=== PATIENT | female | born 1985 | race Caucasian/White ===

== ENCOUNTER 2017-01-26 07:43 | Day surgery (SDC) | payer OTHER ==
[~2017-01-26 07:43] MED LIST: Acetic Acid 0.25%* 250 ML BTL ONE; Buffered Lidocaine 0.9% SYRIN* 5 ML/SYR SYRINGE INTRADERM ONE; Buffered Lidocaine 0.9% SYRIN* 5 ML/SYR SYRINGE ONE; Famotidine IV* 10 MG/ML 2 ML (20 mg) IV ONE; Famotidine IV* 10 MG/ML 2 ML (20 mg) ONE; Ferric Subsulfate* 8 ML BTL ONE; Iodine Strong (LUGOL'S)* 14 ML BTL ONE
[2017-01-26 07:48] LABS: Manual Entry Verification HAN0055; UR Preg Internal Control QC Line Present
[2017-01-26] MEDS ORDERED: Midazolam* 1 MG/ML 5 ML VIAL (5 MG) ONE (08:16)
[2017-01-26] MEDS ORDERED: fentaNYL* 50 MCG/ML 2 ML VIAL (100 MCG VIAL) ONE (08:16)
[2017-01-26] MEDS ORDERED: fentaNYL* 50 MCG/ML 2 ML VIAL (100 MCG VIAL) IV PRN (08:39)
[2017-01-26] MEDS ORDERED: DiMENhydriNATE IV* 50 MG/ML VIAL IV PUSH PRN (08:39)
[2017-01-26] MEDS ORDERED: oxyCODONE/Acetamin 5/325 MG* TAB PO PRN (08:39)
[2017-01-26] MEDS ORDERED: Lidocaine 1% INJ* 10 MG/ML 30 ML SDV ONE (09:43)
[2017-01-26] MEDS ORDERED: Ondansetron INJ* 2 MG/ML VIAL ONE (09:59)
[2017-01-26] MEDS ORDERED: Propofol* 10 MG/ML 20 ML BTL IV PUSH ONE (09:59)
[2017-01-26] MEDS ORDERED: Dexamethasone IV* 4 MG/ML 1 ML (4 MG) ONE (09:59)
[2017-01-26] MEDS ORDERED: Lidocaine 2% PF * 5 ML VIAL ONE (09:59)
[2017-01-26 11:12] VITALS: BP 101/55
--- NOTE | 2017-02-02 19:16 | OP ---
DATE OF OPERATION: 01/26/17 - [facility] DATE OF : 85 SURGEON: Rommel Wheeler MD ANESTHESIA: Local anesthetic with cervical block using 8 cc of 1% lidocaine. PRE-OP DIAGNOSIS: Moderate dysplasia with an inadequate colposcopy. POST-OP DIAGNOSIS: Moderate dysplasia with an inadequate colposcopy, pending pathology. OPERATIVE PROCEDURE: Colposcopy and a loop electrocautery excision procedure of the cervix. ESTIMATED BLOOD LOSS: None. SPECIMEN SENT TO PATHOLOGY: Cervical LEEP biopsy. IV FLUIDS: She received 800 cc of IV crystalloid fluid. URINE OUTPUT: Clear, 20 cc. FINDINGS: Exam under anesthesia revealed grossly normal cervix. The colposcopy was noted to be adequate. The transformation zone was poorly visualized and there was a 6 to 7 o'clock mild acetowhite lesion noted in its entirety at the ectocervical canal. DESCRIPTION OF PROCEDURE: The patient was taken to the operating room where she was identified. She was placed on the operating room table where she was sedated. She was then placed in the dorsal lithotomy position, prepped and draped in the normal sterile fashion. Attention was then brought on to the patient's perineum, where the bladder was catheterized and cleared of urine. A coated speculum was then inserted in the patient's vagina as well as the coated entrapment. The speculum was then attached to suction. A colposcopy was then performed using acetic acid and findings were noted as above. After the colposcopy was performed and deemed to be adequate, a loop electrode was used in a 50% pure cut setting. The LEEP biopsy was then performed. The specimens from the LEEP biopsy were then sent to Pathology. The bed where the LEEP biopsy had then obtained was cauterized using a ball electrode until hemostasis of the cervix was noted. At this point, all the instruments were then removed from the patient's vagina. Sponge, lap, and needle counts were correct x2. She was then transferred to the recovery room area in stable condition. [id number]/[facility] #: [id number] MTDD
== END 2017-01-26 11:29 | disposition home or self-care (01) ==
LOC: OR 07:43
PROVIDERS: ATTEND Obstetrics & Gynecology
DX: N87.1 Moderate cervical dysplasia (principal); F17.210 Nicotine dependence, cigarettes, uncomplicated
CPT/HCPCS: 81025; 88307; A9270-GY; J1100; J2001; J2250; J2405; J2704; J3010

== ENCOUNTER 2018-01-10 07:12 | Day surgery (SDC) | payer OTHER ==
[~2018-01-10 07:12] MED LIST changes: -Acetic Acid 0.25%* 250 ML BTL ONE; -Buffered Lidocaine 0.9% SYRIN* 5 ML/SYR SYRINGE ONE; -Famotidine IV* 10 MG/ML 2 ML (20 mg) IV ONE; -Famotidine IV* 10 MG/ML 2 ML (20 mg) ONE; -Ferric Subsulfate* 8 ML BTL ONE; -Iodine Strong (LUGOL'S)* 14 ML BTL ONE; +Ondansetron TAB* 4 MG PO ONE; +Propofol* 10 MG/ML 20 ML BTL IV PUSH ONE; +Rocuronium* 10 MG/ML VIAL ONE; +Succinylcholine* 20 MG/ML 10 ML VIAL ONE; +ceFOXitin 2 GM IVPREMIX* 2 GM/50 ML BAG IVPB ONE
[2018-01-10] MEDS ORDERED: Bupivacaine 0.5% SDV PF* 30ML VIAL ONE (07:20)
[2018-01-10] MEDS ORDERED: ceFOXitin 2 GM IVPREMIX* 2 GM/50 ML BAG ONE (07:32)
[2018-01-10] MEDS ORDERED: Ondansetron ODT TAB* 4 MG ONE (07:32)
[2018-01-10 08:28] LABS: ABS Basophils 0 10^3/ul (0-0.2); ABS Eosinophils 0.1 10^3/ul (0-0.6); ABS Lymphocytes 2.2 10^3/ul (1.0-4.8); ABS Monocytes 0.4 10^3/ul (0-0.8); ABS Neutrophils 2.1 10^3/ul (1.5-7.7); ABS Nucleated RBC 0 10^3/ul; Hematocrit 39 % (35-47); Hemoglobin 13.6 g/dl (12.0-16.0); Lymphocyte % 45.8 % (25-47); Mean Corpuscular HGB Conc 35 g/dl (31-36); Mean Corpuscular Hemoglobin 35 pg (27-31); Mean Corpuscular Volume 100 fL (80-97); Nucleated Red Blood Cells % 0.1; Platelet Count 169 10^3/ul (150-450); Red Blood Count 3.91 10^6/ul (4.00-5.40); Red Cell Distribution Width 13 % (10.5-15); White Blood Count 4.9 10^3/ul (3.5-10.8)
[2018-01-10] MEDS ORDERED: fentaNYL* 50 MCG/ML 2 ML VIAL (100 MCG VIAL) ONE ×2 (09:23→10:58)
[2018-01-10] MEDS ORDERED: Naloxone* 0.4 MG/ML 1 ML VIAL IV PRN (09:55)
[2018-01-10] MEDS ORDERED: Midazolam* 1 MG/ML 2 ML VIAL (2 MG) ONE (10:12)
[2018-01-10] MEDS ORDERED: Metoclopramide IV* 5 MG/ML 2 ML VIAL ONE (10:19)
[2018-01-10] MEDS ORDERED: Glycopyrrolate IV* 0.2 MG/ML 1 ML VIAL ONE (10:19)
[2018-01-10] MEDS ORDERED: Ketorolac INJ* 30 MG/ML 1 ML VIAL ONE (10:19)
[2018-01-10] MEDS ORDERED: Neostigmine Methylsulfate* 1 MG/ML 10 ML VIAL (1 mg/ml) ONE (10:19)
[2018-01-10] MEDS ORDERED: Acetaminophen TAB* 325 MG PO PRN (10:54)
[2018-01-10] MEDS ORDERED: Ondansetron INJ* 2 MG/ML VIAL ONE (10:55)
[2018-01-10] MEDS ORDERED: Ondansetron ODT TAB* 4 MG PO ONE (10:56)
[2018-01-10] MEDS ORDERED: Ondansetron INJ* 2 MG/ML VIAL IV PRN (10:57)
[2018-01-10] MEDS ORDERED: DiMENhydriNATE IV* 50 MG/ML VIAL ONE (10:58)
[2018-01-10] MEDS: fentaNYL* 50 MCG/ML 2 ML VIAL (100 MCG VIAL) IV PRN ×2 (11:02→11:34)
[2018-01-10 12:05] VITALS: BP 115/72
--- NOTE | 2018-01-11 02:06 | OP ---
OPERATIVE REPORT: DATE OF OPERATION: 01/10/18 DATE OF : 85 SURGEON: Rommel Wheeler MD ASSISTANT CENTER MANAGER: Marleen Ramos, certified nurse practitioner. ANESTHESIA: General anesthetic with endotracheal intubation. PRE-OP DIAGNOSIS: The patient desires surgical sterilization. POST-OP DIAGNOSIS: The patient desires surgical sterilization. OPERATIVE PROCEDURE: Laparoscopic tubal ligation with Filshie clips. ESTIMATED BLOOD LOSS: None. SPECIMEN: None. FLUIDS: She received 700 mL of IV crystalloid fluid. URINE OUTPUT: Clear. FINDINGS: On laparoscopy was normal uterus, tubes, and ovaries bilaterally, and a normal bowel and b ladder. There were no complications. DESCRIPTION OF PROCEDURE: The patient was taken to the operating room where she was identified. She was placed on the operating table where a general anesthetic with endotracheal intubation was obtain ed without difficulty. She was then placed in the dorsal lithotomy position, prepped and draped in n ormal sterile fashion. Attention was then brought onto the patient's perineum where the bladder was c atheterized with the Mar catheter and drained of clear urine. A sponge stick was then inserted int o the vagina. Attention was then brought on to the patient's abdomen where a 1 cm infraumbilical ski n incision was made with a knife and carried through to the underlying layer of fascia. The fascia w as then grasped with Aisha clamps, brought up to the incision and incised in the middle with a knife . Entry into peritoneum, into the abdomen was confirmed using Nancy clamps. The Aisha clamps were then replaced by 0 Polysorb sutures on the fascia. Through this incision, a 5 mm blunt trocar was i ntroduced. Balloon in the trocar was insufflated with air, attached to gas and the abdomen was insuf flated with CO2 gas. A second trocar was introduced under direct visualization 4 cm above symphysis p ubis. At this point, Filshie clip applicator was introduced through the suprapubic trocar and Filshi e clips were applied to the fallopian tubes bilaterally with good blanching at the site and complete surrounding of the fallopian tube lumen. At this point, all the instruments were removed from the pa tient's abdomen. The air from the abdomen was removed. The fascial incision at the umbilicus was heike sed with 0 Polysorb suture in a running fashion. The incisions were closed using 4-0 Monocryl subcut icular stitch. The Mar catheter was removed. The sponge stick was removed from the patient's vagi na. Sponge, lap and needle counts were correct x2. She was then transferred to recovery room area i n stable condition. [id number]/[facility] #: [id number]
== END 2018-01-10 12:17 | disposition home or self-care (01) ==
LOC: OR 07:12
PROVIDERS: ATTEND Obstetrics & Gynecology
DX: Z30.2 Encounter for sterilization (principal); Z72.0 Tobacco use
CPT/HCPCS: 36415; 84702; 85025; 86850; 86900; 86901; A9270-GY; J0330; J0694; J1240; J1885; J2250; J2405; J2704; J2710; J2765; J3010

== ENCOUNTER 2018-11-07 11:13 | Emergency (ER) | payer OTHER ==
--- OUTSIDE RECORDS SUMMARY | 2018-11-07 11:19 | XMS REPORT | Continuity of Care Document ---
:1985 External Reference #:[id number] Author Name Nickie Jones Care Team Providers Name Role Phone Airam Leos MD Primary Care Physician Unavailable Payers Date Identification Numbers Payment Provider Subscriber Effective: 2015 Policy Number: [id number] Raffaele Roblero Group Name: [id number] [address] PayID: [id number] [place] [address] Expires: 2015 Policy Number: [id number] [employer] Aleisha Roblero PayID: [id number] [address] [address] [place] [address] Advance Directives Type Date Description Status Comment Other Directive 05/02/2018 Health Care Proxy Current and Verified Problems Date Description Provider Status Onset: 11/18/2011 FH: Cardiovascular disease Nurse Visit [facility] Active Onset: 11/18/2011 Family history of endocrine Nurse Visit [facility] Active disorders Onset: 11/18/2011 Hemangioma Hailey Hayden M.D. Active Onset: 11/18/2011 Human immunodeficiency virus Nurse Visit [facility] Active counseling Onset: 12/01/2011 Dehydration Nicolasa Guardado, Active N.P. Onset: 12/01/2011 Nausea and vomiting Nicolasa Guardado, Active N.P. Onset: 01/19/2012 Breast signs and symptoms Nicolasa Guardado Active N.P. Onset: 01/19/2012 Verruca vulgaris Nicolasa Guardado, Active N.P. Family History Date Family Member(s) Observation Comments Father Hypertension Social History Type Date Description Comments Sex Unknown ETOH Use Never used alcohol Tobacco Use Start: Unknown End: Patient is a former smoker Unknown Recreational Drug Use Current Drug User marijuana Smoking Status Reviewed: 10/12/18 Patient is a former smoker Allergies, Adverse Reactions, Alerts Date Description Reaction Status Severity Comments 10/29/2011 Advil Cold And Sinus Contact dermatitis, Hives Active Medications Medication Date Status Form Strength Qnty SIG Indications Ordering Provider Selvin 10/13/ Active Tablets 4mg 30tabs one Zenaida 2018 tablet VENTURA Springer every 6 to 8 hours as needed Ranitidine HCL 10/10/ Active Tablets 150mg 60tabs take one R11.2 Teresa 2019 tablet by Varn, mouth N.P. twice a day No Active 05/16/ Hx Unknown Medications 2017 - 2018 No Active 05/02/ Hx Unknown Medications 2017 - 2017 Proctosol HC 05/02/ Hx Cream 2.5% 28.35u apply K64.8 Teresa 2018 - nits twice Varn, 05/16/ daily N.P. 2018 Amoxicillin/Cl 08/16/ Hx Tablets 875-125mg 20tabs take one J01.90 Wilmer avulanate 2016 - tablet VENTURA Gimenez Potassium 08/26/ q12 hours 2017 for 10 days Fluticasone 08/16/ Hx Suspension 50mcg/Act 16unit 2 sprays J01.90 Wilmer Propionate 2017 - s each VENTURA Gimenez 08/30/ nostril 2016 qd. x 2 weeks Augmentin 10/25/ Hx Tablets 875-125mg 20tabs 1 tablet J01.90 Wilmer 2016 - by mouth VENTURA Gimenez 08/16/ q12 hours 2017 for 10 days Fluticasone /25/ Hx Suspension 50mcg/Act 16unit 2 sprays J01.90 Wilmer Propionate 2016 - s each VENTURA Gimenez 05/09/ nostril 2015 qd. Bupropion HCL 12/09/ Hx Tablets ER 150mg 60tabs one Z72.0 Wilmer ER (Smoking 2015 - 12HR tablet VENTURA Gimenez Det) 05/04/ once 2016 daily x 3 days and then one tablet twice daily Azithromycin 12/09/ Hx Tablets 250mg 6tabs 2 tabs by L08.89 Wilmer 2015 - mouth VENTURA Gimenez 05/04/ every day 2016 x1 day, 1 tab by mouth every day x 4 days Proair HFA 04/19/ Hx Aerosol 108(90Base 1inhal 2 puffs 466.0 Barbara 2013 - ) mcg/Act er inhaled Carlos Enrique, 07/07/ q4-6h prn N.P. 2014 Augmentin 04/19/ Hx Tablets 875-125mg 20tabs 1 tab po 466.0 Barbara 2013 - bid x 10 Carlos Enrique, 07/07/ days N.P. 2014 Tessalon 04/19/ Hx Capsules 100mg 30caps 1 tab po 466.0 Barbara Perles 2012 - po tid Carlos Enrique, 07/07/ prn N.P. 2014 Amoxicillin/Cl 05/18/ Hx Tablets 875-125mg 20tabs 1 tab po 466.0 Hailey avulanate 2011 - 2x per Catracho, Potassium 01/08/ day M.D. 2012 Lamisil AT 05/18/ Hx Cream 1% 45gm apply to 110.4 Hailey Athletes Foot 2011 - foot bid Catracho 07/07/ until M.D. 2014 resolved Ortho Evra / Hx Patches 150-20mcg/ 9units apply Unknown 0000 - Weekly 24HR patch 05/18/ 2011 for 3 weeks, then remove for 1 week for cycle. Depo Shot / Hx Unknown 0000 - 2017 Immunizations CPT Code Status Date Vaccine Lot # [id number] Given 10/29/2011 Tdap - Tetanus/Diptheria/Acellular Pertussis [id number] Vital Signs Date Vital Result Comment 10/12/2018 10:07am Height 64.5 inches 5'4.50" Weight 119.25 lb Heart Rate 72 /min BP Systolic 97 mmHg BP Diastolic 66 mmHg Respiratory Rate 16 /min Body Temperature 96.9 F O2 % BldC Oximetry 100 % BMI (Body Mass Index) 20.2 kg/m2 10/10/2018 11:40am Height 64.5 inches 5'4.50" Weight 120.00 lb Heart Rate 67 /min BP Systolic 103 mmHg BP Diastolic 68 mmHg Body Temperature 96.8 F O2 % BldC Oximetry 97 % BMI (Body Mass Index) 20.3 kg/m2 05/02/2018 3:35pm Height 64.5 inches 5'4.50" Weight 131.00 lb Heart Rate 98 /min BP Systolic Sitting 89 mmHg BP Diastolic Sitting 59 mmHg Body Temperature 98.0 F O2 % BldC Oximetry 98 % BMI (Body Mass Index) 22.1 kg/m2 08/16/2016 9:58am Weight 135.00 lb with shoes Heart Rate 103 /min BP Systolic 100 mmHg BP Diastolic 70 mmHg Body Temperature 97.8 F O2 % BldC Oximetry 99 % 05/04/2016 8:37am Height 64.5 inches 5'4.50" Weight 131.00 lb Heart Rate 103 /min BP Systolic 119 mmHg BP Diastolic 75 mmHg Body Temperature 98.1 F O2 % BldC Oximetry 99 % BMI (Body Mass Index) 22.1 kg/m2 12/10/2015 8:31am Heart Rate 84 /min BP Systolic Sitting 99 mmHg BP Diastolic Sitting 62 mmHg Body Temperature 98.4 F O2 % BldC Oximetry 98 % 09/17/2015 3:00pm Height 64.25 inches 5'4.25" Weight 136.00 lb Heart Rate 109 /min BP Systolic Sitting 122 mmHg BP Diastolic Sitting 62 mmHg O2 % BldC Oximetry 98 % BMI (Body Mass Index) 23.2 kg/m2 07/07/2015 1:58pm Height 65.25 inches 5'5.25" Weight 131.00 lb Heart Rate 76 /min BP Systolic Sitting 90 mmHg BP Diastolic Sitting 58 mmHg Body Temperature 97.8 F O2 % BldC Oximetry 99 % BMI (Body Mass Index) 21.6 kg/m2 04/19/2013 8:58am Height 65.25 inches 5'5.25" Weight 120.25 lb Heart Rate 80 /min BP Systolic Sitting 96 mmHg BP Diastolic Sitting 62 mmHg BMI (Body Mass Index) 19.9 kg/m2 02/07/2013 12:10pm Height 65 inches 5'5" Weight 116.25 lb Heart Rate 112 /min BP Systolic Sitting 116 mmHg BP Diastolic Sitting 78 mmHg BMI (Body Mass Index) 19.3 kg/m2 01/08/2013 1:37pm Weight 121.00 lb Heart Rate 80 /min BP Systolic Sitting 112 mmHg BP Diastolic Sitting 64 mmHg 05/18/2012 11:39am Height 64.5 inches 5'4.50" Weight 116.00 lb Heart Rate 79 /min BP Systolic Sitting 102 mmHg BP Diastolic Sitting 58 mmHg Body Temperature 96.9 F O2 % BldC Oximetry 99 % BMI (Body Mass Index) 19.6 kg/m2 01/19/2012 3:03pm Height 64.5 inches 5'4.50" Weight 109.75 lb Heart Rate 100 /min BP Systolic Sitting 104 mmHg BP Diastolic Sitting 62 mmHg BMI (Body Mass Index) 18.5 kg/m2 12/01/2011 10:01am Weight 111.00 lb Heart Rate 72 /min BP Systolic Sitting 94 mmHg BP Diastolic Sitting 60 mmHg Body Temperature 96.3 F lt ear 10/29/2011 12:48pm Height 64 inches 5'4" Weight 113.00 lb Heart Rate 88 /min BP Systolic Sitting 100 mmHg BP Diastolic Sitting 80 mmHg BMI (Body Mass Index) 19.4 kg/m2 Results Test Date Facility Test Result H/L Range Note Laboratory test 10/12/2018 [facility] H Pylori C <pending> finding [address] [place] [address] Test [phone] CBC Auto Diff 10/11/2018 [facility] White Blood 7.7 10^3/uL N 3.5-10.[address] [place] [address] [phone] Red Blood Count 4.05 10^6/uL N 3.70-4.87 Hemoglobin 13.9 g/dL N 12.0-16.0 Hematocrit 41 % N 33-41 Mean Corpuscular Volume 101 fL High 80-97 Mean Corpuscular Hemoglobin 34 pg High 27-31 Mean Corpuscular HGB Conc 34 g/dL N 31-36 Red Cell Distribution Width 13 % N 10.5-15 Platelet Count 181 10^3/uL N 150-450 Mean Platelet Volume 9.9 fL N 7.4-10.4 Abs Neutrophils 4.6 10^3/uL N 1.5-7.7 Abs Lymphocytes 2.5 10^3/uL N 1.0-4.8 Abs Monocytes 0.5 10^3/uL N 0-0.8 Abs Eosinophils 0 10^3/uL N 0-0.6 Abs Basophils 0 10^3/uL N 0-0.2 Abs Nucleated RBC 0 10^3/uL Granulocyte % 59.5 % Lymphocyte % 32.7 % Monocyte % 7.1 % Eosinophil % 0.3 % Basophil % 0.4 % Nucleated Red Blood Cells % 0.1 Laboratory test 10/11/2018 [facility] HCG < 0.60 [address] mIU/[place] [address] [phone] Basic Metabolic 10/11/2018 [facility] Sodium 139 mmol/L N 135- [address] [place] [address] [phone] Potassium 3.7 mmol/L N 3.5-5.0 Chloride 105 mmol/L N 101-111 Co2 Carbon Dioxide 25 mmol/L N 22-32 Anion Gap 9 mmol/L N 2-11 Glucose 89 mg/dL N 70-100 Blood Urea Nitrogen 15 mg/dL N 6-24 Creatinine 0.67 mg/dL N 0.51-0.95 BUN/Creatinine Ratio 22.4 High 8-20 Calcium 10.0 mg/dL N 8.6-10.3 Egfr Non- 101.4 >60 Egfr 122.7 >60 2 Laboratory test 09/18/2015 [facility] LDL Cholesterol 35 mg/dL N [address] [place] [address] [phone] Comp Metabolic 09/18/2015 [facility] Sodium 139 mmol/L N 133- [address] [place] [phone] Potassium 4.1 mmol/L N 3.5-5.0 Chloride 107 mmol/L N 101-111 Co2 Carbon Dioxide 27 mmol/L N 22-32 Anion Gap 5 mmol/L N 2-11 Glucose 88 mg/dL N 70-100 Blood Urea Nitrogen 13 mg/dL N 6-24 Creatinine 0.75 mg/dL N 0.51-0.95 BUN/Creatinine Ratio 17.3 N 8-20 Calcium 9.5 mg/dL N 8.6-10.3 Total Protein 7.0 g/dL N 6.4-8.9 Albumin 4.8 g/dL N 3.2-5.2 Globulin 2.2 g/dL N 2-4 Albumin/Globulin Ratio 2.2 N 1-3 Total Bilirubin 0.70 mg/dL N 0.2-1.0 Alkaline Phosphatase 49 U/L N 34-104 Alt 15 U/L N 7-52 Ast 16 U/L N 13-39 Egfr Non- 90.7 N >60 Egfr 116.7 N >60 4 Lipid Profile 09/18/2015 [facility] Triglycerides 21 mg/dL N 5 (Trig/Chol/HDL) [address] [place] [address] [phone] Cholesterol 116 mg/dL N 6 HDL Cholesterol 72.1 mg/dL N 7 LDL Cholesterol 40 mg/dL N 8 Hepatitis 12/01/2011 [facility] Hepatitis C Nonreactive Nonreactive Acute Panel [address] [place] [address] [phone] Hepatitis A AB Igm Nonreactive Nonreactive Hepatitis B Core Igm Nonreactive Nonreactive Hepatitis B Surface Ag Nonreactive Nonreactive CBC With Manual 12/01/2011 [facility] White Blood 8.9 CUMM 4.8-10.[address] [place] [address] [phone] Red Cell Count 3.97 CUMM Low 4.2-5.4 Hemoglobin 13.4 g/dL 12.0-16.0 Hematocrit 39 % 35-47 Mean Corpuscular Volume 98 um3 High 79-97 Mean Corpuscular Hemoglob 34 pg High 27-31 Mean Corpuscular HGB Cone 35 g/dL 32-36 Redcell Distribution WDTH 13 % 10.5-15 Platelet Count 264 CUMM 150-450 Mean Platelet Volume 10.4 um3 7.4-10.4 Absolute Neutrophil Count 6.7 1.5-7.7 Polysegmented Neutrophil 75 % 38-83 Band Neutrophil 2 % 0-8 Lymphocyte 14 % Low 25-47 Monocyte 5 % 0-13 Eosinophil 3 % 0-6 Atypical Lymph 1 % 0-6 Anisocytosis SLIGHT Laboratory test 12/01/2011 [facility] TSH 0.42 MIU/ML 0.34- 5.[address] [place] [address] [phone] Comp Metabolic 12/01/2011 [facility] Sodium 140 mmol/L 135- 145 Panel [address] [place] [address] [phone] Potassium 4.2 mmol/L 3.5-5.0 Chloride 105 mmol/L 101-111 Co2 (Carbon Dioxide) 29.0 mmol/L 22-32 Anion Gap 6.0 mmol/L 2-11 9 Glucose 84 mg/dL 70-100 BUN 15 mg/dL 6-24 Creatinine 0.7 mg/dL 0.50-1.40 One Over Creatinine 1.42 BUN/Creatinine Ratio 21.4 High 8-20 Calcium 9.2 mg/dL 8.1-9.9 Total Protein 6.9 GM/DL 6.2-8.1 Albumin 4.2 GM/DL 3.6-5.4 Globulin 2.7 GM/DL 2-4 Albumin/Globulin Ratio 1.6 1-3 Bilirubin Total 0.7 mg/dL 0.4-1.5 10 Alkaline Phosphatase 62 U/L 30-110 Alt (SGPT) 17 U/L 14-54 Ast (Sgot) 15 U/L 12-42 eGFR Non- 101.1 > 60 eGFR 130.1 > 60 11 CBC Auto Diff 11/01/2011 [facility] White Blood 4.7 CUMM Low 4.8-10.[address] [place] [address] [phone] Red Cell Count 3.95 CUMM Low 4.2-5.4 Hemoglobin 13.7 g/dL 12.0-16.0 Hematocrit 38 % 35-47 Mean Corpuscular Volume 97 um3 79-97 Mean Corpuscular Hemoglob 35 pg High 27-31 Mean Corpuscular HGB Cone 36 g/dL 32-36 Redcell Distribution WDTH 14 % 10.5-15 Platelet Count 214 CUMM 150-450 Mean Platelet Volume 10.1 um3 7.4-10.4 Gran % 50.4 % 38-83 Lymph % 37.7 % 25-47 Mononuclear % 8.5 % 1-9 Eosinophil % 2.8 % 0-6 Basophil % 0.6 % 0-2 Abs Lymphs 1.8 1.0-4.8 Abs Mononuclear 0.4 0-0.8 Absolute Neutrophil Count 2.4 1.5-7.7 Abs Eosinophils 0.1 0-0.6 Abs Basophils 0 0-0.2 Comp Metabolic Panel 11/01/2011 [facility] Sodium 138 mmol/L 135-[address] [place] [address] [phone] Potassium 4.0 mmol/L 3.5-5.0 Chloride 106 mmol/L 101-111 Co2 (Carbon Dioxide) 27.0 mmol/L 22-32 Anion Gap 5.0 mmol/L 2-11 12 Glucose 89 mg/dL 70-100 BUN 13 mg/dL 6-24 Creatinine 0.8 mg/dL 0.50-1.40 One Over Creatinine 1.25 BUN/Creatinine Ratio 16.3 8-20 Calcium 9.1 mg/dL 8.1-9.9 Total Protein 6.7 GM/DL 6.2-8.1 Albumin 4.1 GM/DL 3.6-5.4 Globulin 2.6 GM/DL 2-4 Albumin/Globulin Ratio 1.6 1-3 Bilirubin Total 0.8 mg/dL 0.4-1.5 13 Alkaline Phosphatase 60 U/L 30-110 Alt (SGPT) 13 U/L Low 14-54 Ast (Sgot) 18 U/L 12-42 eGFR Non- 86.7 > 60 eGFR 111.5 > 60 14 Lipid Profile 11/01/2011 [facility] Triglyceride 43 mg/dL 40- 200 (Trig/Chol/HDL) [address] [place] [address] [phone] Cholesterol 174 mg/dL Less Than 200 15 High Density Lipoprotein 75 mg/dL High 40-60 16 Cholesterol/HDL Ratio 2.32 AVERAGE 1-4.44 Low Density Lipoprotein 90 mg/dL Less Than 100 17 Vad 11/01/2011 [facility] Vad Final Nonreactive Nonreactive 18 [address] [place] [address] [phone] 1 <5.0 Negative 5.0 - 25.0 Indeterminate (Repeat testing recommended after 72 hours) >25.0 Positive Perimenopausal women can display HCG levels of up to 20 mIU/mL 2 Because ethnic data is not always readily available, this report includes an eGFR for both -Americans and non- Americans. The National Kidney Disease Education Program (NKDEP) does not endorse the use of the MDRD equation for patients that are not between the ages of 18 and 70, are , have extremes of body size, muscle mass, or nutritional status, or are non- or non-. According to the National Kidney Foundation, irrespective of diagnosis, the stage of the disease is based on the level of kidney function: Stage Description GFR(mL/min/1.73 m(2)) 1 Kidney damage with normal or decreased GFR 90 2 Kidney damage with mild decrease in GFR 60-89 3 Moderate decrease in GFR 30-59 4 Severe decrease in GFR 15-29 5 Kidney failure <15 (or dialysis) 3 Desirable: <100 mg/dL Near Optimal: 100-129 mg/dL Borderline High: 130-159 mg/dL High: 160-189 mg/dL Very High: >189 mg/dL 4 Because ethnic data is not always readily available, this report includes an eGFR for both -Americans and non- Americans. The National Kidney Disease Education Program (NKDEP) does not endorse the use of the MDRD equation for patients that are not between the ages of 18 and 70, are , have extremes of body size, muscle mass, or nutritional status, or are non- or non-. According to the National Kidney Foundation, irrespective of diagnosis, the stage of the disease is based on the level of kidney function: Stage Description GFR(mL/min/1.73 m(2)) 1 Kidney damage with normal or decreased GFR 90 2 Kidney damage with mild decrease in GFR 60-89 3 Moderate decrease in GFR 30-59 4 Severe decrease in GFR 15-29 5 Kidney failure <15 (or dialysis) 5 Desirable <150 Borderline high 150-199 High 200-499 Very High >500 6 Desirable <200 Borderline high 200-239 High >239 7 Low <40 Desirable: 40-60 High: >60 8 Desirable: <100 mg/dL Near Optimal: 100-129 mg/dL Borderline High: 130-159 mg/dL High: 160-189 mg/dL Very High: >189 mg/dL 9 Anion gap measurement may be of limited value in the presence of any alkalosis, especially in a combined acid base disorder. . 10 A metabolite of Naproxen, O-desmethylnaproxen, has been shown to interfere with the Jendrassik-Jyotsna method for measuring total bilirubin. Samples from patients who have taken Naproxen have shown spurious elevation in total bilirubin levels. 11 Because ethnic data is not always readily available, this report includes an eGFR for both -Americans and non- Americans. The National Kidney Disease Education Program (NKDEP) does not endorse the use of the MDRD equation for patients that are not between the ages of 18 and 70, are , have extremes of body size, muscle mass, or nutritional status, or are non- or non-. According to the National Kidney Foundation, irrespective of diagnosis, the stage of the disease is based on the level of kidney function: Stage Description GFR(mL/min/1.73 m(2)) 1 Kidney damage with normal or decreased GFR 90 2 Kidney damage with mild decrease in GFR 60-89 3 Moderate decrease in GFR 30-59 4 Severe decrease in GFR 15-29 5 Kidney failure <15 (or dialysis) 12 Anion gap measurement may be of limited value in the presence of any alkalosis, especially in a combined acid base disorder. . 13 A metabolite of Naproxen, O-desmethylnaproxen, has been shown to interfere with the Jendrassik-Bonifay method for measuring total bilirubin. Samples from patients who have taken Naproxen have shown spurious elevation in total bilirubin levels. 14 Because ethnic data is not always readily available, this report includes an eGFR for both -Americans and non- Americans. The National Kidney Disease Education Program (NKDEP) does not endorse the use of the MDRD equation for patients that are not between the ages of 18 and 70, are , have extremes of body size, muscle mass, or nutritional status, or are non- or non-. According to the National Kidney Foundation, irrespective of diagnosis, the stage of the disease is based on the level of kidney function: Stage Description GFR(mL/min/1.73 m(2)) 1 Kidney damage with normal or decreased GFR 90 2 Kidney damage with mild decrease in GFR 60-89 3 Moderate decrease in GFR 30-59 4 Severe decrease in GFR 15-29 5 Kidney failure <15 (or dialysis) 15 CHOLESTEROL INTERPRETATION: Desirable: Less than 200 MG/DL Borderline-High Risk: 200-239 MG/DL High-Risk: 240 MG/DL and over 16 HDL INTERPRETATION: Undesirable: High Risk: Less than 40 MG/DL Desirable: Low Risk: Greater than 60 MG/DL 17 LDL INTERPRETATION: Low Risk Optimal Level: LDL Less than 100 MG/DL Near or Above Optimal: LDL 100-129 MG/DL Borderline High Risk: LDL 130-159 MG/DL High Risk: LDL 160-189 MG/DL Very High Risk: LDL Greater than 189 MG/DL 18 It is recognized that currently available assays for the detection of antibodies to HIV-1 and/or HIV-2 may not detect all infected individuals. HIV antibodies may be undetectable in some stages of the infection and in some clinical conditions. The performance of this assay has not been established for populations of infants or children. Assayed by Chemiluminescence Microparticle Immunoassay on the [employer] Advia Centaur CP. Values obtained with different methods or kits cannot be used interchangeably.The diagnostic specificity of the ADVIA Centaur 1/O/2 Enhanced assay in the low risk population was 99.90% (6052/6058) with a 95% confidence interval of 99.78 to 99.96%. Procedures Date Code Description Status 02/07/2013 91596 Destruction Of Benign Lesions Any Method 1-14 lesions Completed 01/08/2013 41217 Destruction Of Benign Lesions Any Method 1-14 lesions Completed 01/19/2012 46539 Destruction Of Benign Lesions Any Method 1-14 lesions Completed Encounters Type Date Location Provider Dx Diagnosis Office Visit 10/10/2018 [facility] Teresa Seymour, R11.2 Nausea with 11:40a Medicine N.P. vomiting, unspecified Office Visit 05/02/2018 [facility] Internal Teresa Seymour, K64.8 Other hemorrhoids 3:40p Medicine N.P. F17.210 Nicotine dependence, cigarettes, uncomplicated Office Visit 08/16/2016 10:00a [facility] Internal Wilmer Gimenez, J01.90 Acute sinusitis, Medicine [employer] unspecified Office Visit 05/04/2016 8:40a [facility] Internal Wilmer Gimenez J01.90 Acute sinusitis, Medicine [employer] unspecified Office Visit 12/10/2015 8:40a [facility] Internal Wilmer Gimenez, L08.89 Ot local Medicine [employer] infections of the skin and subcutaneous tissue Z72.0 Tobacco use Office Visit 09/17/2015 3:00p [facility] Internal Wilmer Gimenez, [employer] Z00.00 Encntr for Medicine general adult medical exam w/o abnormal findings N63 Unspecified lump in breast Z72.0 Tobacco use Z13.220 Encounter for screening for lipoid disorders Z13.1 Encounter for screening for diabetes mellitus Office Visit 07/07/2015 2:00p [facility] Internal Kishor Astudillo, R11.10 Vomiting, Medicine [employer] unspecified Office Visit 04/19/2013 9:00a [facility] Internal Barbara 078.19 Viral Warts Spec Medicine Carlos Enrique, Other N.P. 466.0 Bronchitis Acute Office Visit 01/08/2013 1:40p [facility] Internal Teresa Varn, 719.41 Pain Joint Medicine N.P. Shoulder Region 078.19 Viral Warts Spec Other Office Visit 05/18/2012 11:40a [facility] Internal Hailey Hayden, 466.0 Bronchitis Acute Medicine M.D. 110.4 Dermatophytosis Foot Office Visit 01/19/2012 [facility] Internal Nicolasa 611.79 Breast Signs & 3:00p Medicine Debby, N.P. Symptoms Other 078.10 Viral Warts Unspec Office Visit 12/01/2011 10:30a [facility] Internal Nicolasa 276.51 Dehydration Medicine Debby N.P. 787.01 Nausea W/ Vomiting Office Visit 10/29/2011 1:20p [facility] Internal Hailey Hayden, 228.09 Hemangioma Other Medicine M.D. Sites V17.49 Family HX Of Other Cardiovascular Diseases V18.19 Family HX Of Other Endocrine And Metabolic Diseases v06.1 Yklvuhqlce-Xkypumx-Wrsttmfd Combined (DTaP) Plan of Treatment Future Appointment(s):11/10/2018 8:45 am - Zenaida Springer NP at [facility] Gastroenterology
--- OUTSIDE RECORDS SUMMARY | 2018-11-07 11:20 | XMS REPORT | Continuity of Care Document ---
:1985 External Reference #:[id number] Author Name Jessealessia Tamie Care Team Providers Name Role Phone Airam Leos MD Primary Care Physician Unavailable Payers Date Identification Numbers Payment Provider Subscriber Effective: 2015 Policy Number: [id number] Raffaele Aleisha Roblero Group Name: [id number] [address] PayID: [id number] [place] [address] Expires: 2015 Policy Number: [id number] [employer] Aleisha Roblero PayID: [id number] [address] [address] [place] [address] Advance Directives Type Date Description Status Comment [...] Active N.P. Onset: 01/19/2012 Verruca vulgaris Nicolasa Guardado Active N.P. Family History Description No Information Available Social History Type Date Description Comments Sex Unknown Tobacco Use Start: Unknown End: Unknown Patient is a former smoker Smoking Status Reviewed: 10/10/18 Patient is a former smoker Allergies, Adverse Reactions, Alerts Date Description Reaction Status Severity Comments 10/29/2011 Advil Cold And Sinus Contact dermatitis, Hives Active Medications Medication Date Status Form Strength Qnty SIG Indications Ordering Provider Ranitidine HCL 10/10/ Active Tablets 150mg 60tabs take one R11.2 2018 tablet by Varn, mouth N.P. twice a day No Active 05/16/ Hx Unknown Medications 2017 - 2018 No Active 05/02/ Hx Unknown Medications 2017 - 2017 Proctosol HC 05/02/ Hx Cream 2.5% 28.35u apply K64.8 Teresa 2018 - nits twice Varn, 05/16/ daily N.P. 2017 Amoxicillin/Cl 08/16/ Hx Tablets 875-125mg 20tabs take one J01.90 Wilmer avulanate 2017 - tablet VENTURA Gimenez Potassium 08/26/ q12 hours 2017 for 10 days Fluticasone 08/16/ Hx Suspension 50mcg/Act 16unit 2 sprays J01.90 Wilmer Propionate 2017 - s each VENTURA Gimenez 08/30/ nostril 2016 qd. x 2 weeks Augmentin 10/25/ Hx Tablets 875-125mg 20tabs 1 tablet J01.90 Wilmer 2016 - by mouth VENTURA Gimenez 08/16/ q12 hours 2017 for 10 days Fluticasone 10/25/ Hx Suspension 50mcg/Act 16unit 2 sprays J01.90 Wilmer Propionate 2016 - s each VENTURA Gimenez 05/09/ nostril 2015 qd. Bupropion HCL 12/09/ Hx Tablets ER 150mg 60tabs one Z72.0 Wilmer ER (Smoking 2016 - 12HR tablet VENTURA Gimenez Det) 05/04/ once 2015 daily x 3 days and then one tablet twice daily Azithromycin 12/09/ Hx Tablets 250mg 6tabs 2 tabs by L08.89 Wilmer 2015 - mouth VENTURA Gimenez 05/04/ every day 2016 x1 day, 1 tab by mouth every day x 4 days Proair HFA 10/10/ Hx Aerosol 108(90Base 1inhal 2 puffs 466.0 Barbara 2012 - ) mcg/Act er inhaled Carlos Enrique, 07/07/ q4-6h prn N.P. 2014 Augmentin 10/10/ Hx Tablets 875-125mg 20tabs 1 tab po 466.0 Barbara 2013 - bid x 10 Carlos Enrique, 07/07/ days N.P. 2014 Tessalon 04/19/ Hx Capsules 100mg 30caps 1 tab po 466.0 Barbara Perles 2013 - po tid Carlos Enrique, 07/07/ prn N.P. 2014 Amoxicillin/Cl 05/18/ Hx Tablets 875-125mg 20tabs 1 tab po 466.0 Hailey avulanate 2012 - 2x per Ashish Hayden 01/08/ day M.DTrace 2012 Lamisil AT 05/18/ Hx Cream 1% 45gm apply to 110.4 Hailey Athletes Foot 2011 - foot bid Catracho 07/07/ until M.DTrace 2014 resolved Ortho Evra / Hx Patches 150-20mcg/ 9units apply Unknown 0000 - Weekly 24HR patch 05/18/ 2011 for 3 weeks, then remove for 1 week for cycle. Depo Shot / Hx Unknown 0000 - 2017 Immunizations CPT Code Status Date Vaccine Lot # [id number] Given 10/29/2011 Tdap - Tetanus/Diptheria/Acellular Pertussis [id number] Vital Signs Date Vital Result Comment 10/10/2018 11:40am Height 64.5 inches 5'4.50" Weight [...] Test Result H/L Range Note Laboratory test 09/18/2015 [facility] LDL Cholesterol 35 mg/dL N [address] [place] [address] [phone] Comp Metabolic 09/18/2015 [facility] Sodium 139 mmol/L N 133- [address] [place] [address] [phone] Potassium 4.1 mmol/L N 3.5-5.0 Chloride 107 [...] 90.7 N >60 Egfr 116.7 N >60 2 Lipid Profile 09/18/2015 [facility] Triglycerides 21 mg/dL N 3 (Trig/Chol/HDL) [address] [place] [address] [phone] Cholesterol 116 mg/dL N 4 HDL Cholesterol 72.1 mg/dL N 5 LDL Cholesterol 40 mg/dL N 6 Hepatitis 12/01/2011 [facility] Hepatitis C Nonreactive Nonreactive Acute Panel [address] [place] [address] [phone] Hepatitis A AB Igm Nonreactive Nonreactive Hepatitis B Core Igm Nonreactive Nonreactive Hepatitis B Surface Ag Nonreactive Nonreactive CBC With Manual 12/01/2011 [facility] White Blood 8.9 CUMM 4.8-10.8 Diff [address] [place] [address] [phone] Red Cell Count 3.97 CUMM Low 4.2-5.4 [...] % 0-6 Anisocytosis SLIGHT Laboratory test 12/01/2011 [facility] TSH 0.42 MIU/ML 0.34- 5.60 finding [address] [place] [address] [phone] Comp Metabolic 12/01/2011 [facility] Sodium 140 mmol/L 135- 145 Panel [address] [place] [address] [phone] Potassium 4.2 mmol/L 3.5-5.0 Chloride 105 mmol/L 101-111 Co2 (Carbon Dioxide) 29.0 mmol/L 22-32 Anion Gap 6.0 mmol/L 2-11 7 Glucose 84 mg/dL 70-100 BUN 15 mg/dL 6-24 Creatinine 0.7 mg/dL 0.50-1.40 One Over Creatinine 1.42 BUN/Creatinine Ratio 21.4 High 8-20 Calcium 9.2 mg/dL 8.1-9.9 Total Protein 6.9 GM/DL 6.2-8.1 Albumin 4.2 GM/DL 3.6-5.4 Globulin 2.7 GM/DL 2-4 Albumin/Globulin Ratio 1.6 1-3 Bilirubin Total 0.7 mg/dL 0.4-1.5 8 Alkaline Phosphatase 62 U/L 30-110 Alt (SGPT) 17 U/L 14-54 Ast (Sgot) 15 U/L 12-42 eGFR Non- 101.1 > 60 eGFR 130.1 > 60 9 Comp Metabolic Panel 11/01/2011 [facility] Sodium 138 mmol/L 135-145 [address] [place] [address] [phone] Potassium 4.0 mmol/L 3.5-5.0 Chloride 106 mmol/L 101-111 Co2 (Carbon Dioxide) 27.0 mmol/L 22-32 Anion Gap 5.0 mmol/L 2-11 10 Glucose 89 mg/dL 70-100 BUN 13 mg/dL 6-24 Creatinine 0.8 mg/dL 0.50-1.40 One Over Creatinine 1.25 BUN/Creatinine Ratio 16.3 8-20 Calcium 9.1 mg/dL 8.1-9.9 Total Protein 6.7 GM/DL 6.2-8.1 Albumin 4.1 GM/DL 3.6-5.4 Globulin 2.6 GM/DL 2-4 Albumin/Globulin Ratio 1.6 1-3 Bilirubin Total 0.8 mg/dL 0.4-1.5 11 Alkaline Phosphatase 60 U/L 30-110 Alt (SGPT) 13 U/L Low 14-54 Ast (Sgot) 18 U/L 12-42 eGFR Non- 86.7 > 60 eGFR 111.5 > 60 12 Lipid Profile 11/01/2011 [facility] Triglyceride 43 mg/dL 40- 200 (Trig/Chol/HDL) [address] [place] [address] [phone] Cholesterol 174 mg/dL Less Than 200 13 High Density Lipoprotein 75 mg/dL High 40-60 14 Cholesterol/HDL Ratio 2.32 AVERAGE 1-4.44 Low Density Lipoprotein 90 mg/dL Less Than 100 15 Vad 11/01/2011 [facility] Vad Final Nonreactive Nonreactive [address] [place] [address] [phone] CBC Auto 11/01/2011 [facility] White Blood 4.7 CUMM Low 4.8- 10.[address] [place] [address] [phone] Red Cell Count 3.95 CUMM Low 4.2-5.4 [...] Eosinophils 0.1 0-0.6 Abs Basophils 0 0-0.2 1 Desirable: <100 mg/dL Near Optimal: 100-129 mg/dL Borderline High: 130-159 mg/dL High: 160-189 mg/dL Very High: >189 mg/dL 2 Because ethnic data is not always [...] 5 Kidney failure <15 (or dialysis) 3 Desirable <150 Borderline high 150-199 High 200-499 Very High >500 4 Desirable <200 Borderline high 200-239 High >239 5 Low <40 Desirable: 40-60 High: >60 6 Desirable: <100 mg/dL Near Optimal: 100-129 mg/dL Borderline High: 130-159 mg/dL High: 160-189 mg/dL Very High: >189 mg/dL 7 Anion gap measurement may be of limited value in the presence of any alkalosis, especially in a combined acid base disorder. . 8 A metabolite of Naproxen, O-desmethylnaproxen, has been shown to interfere with the Jenhenriqueik-Solen method for measuring total bilirubin. Samples from patients who have taken Naproxen have shown spurious elevation in total bilirubin levels. 9 Because ethnic data is not always readily [...] 15-29 5 Kidney failure <15 (or dialysis) 10 Anion gap measurement may be of limited value in the presence of any alkalosis, especially in a combined acid base disorder. . 11 A metabolite of Naproxen, O-desmethylnaproxen, has been shown to interfere with the Jendrassik-Solen method for measuring total bilirubin. Samples from patients who have taken Naproxen have shown spurious elevation in total bilirubin levels. 12 Because ethnic data is not always readily [...] 15-29 5 Kidney failure <15 (or dialysis) 13 CHOLESTEROL INTERPRETATION: Desirable: Less than 200 MG/DL Borderline-High Risk: 200-239 MG/DL High-Risk: 240 MG/DL and over 14 HDL INTERPRETATION: Undesirable: High Risk: Less than 40 MG/DL Desirable: Low Risk: Greater than 60 MG/DL 15 LDL INTERPRETATION: Low Risk Optimal Level: LDL Less than 100 MG/DL Near or Above Optimal: LDL 100-129 MG/DL Borderline High Risk: LDL 130-159 MG/DL High Risk: LDL 160-189 MG/DL Very High Risk: LDL Greater than 189 MG/DL 16 It is recognized that currently available assays [...] 99.96%. Procedures Date Code Description Status 02/07/2013 67731 Destruction Of Benign Lesions Any Method 1-14 lesions Completed 01/08/2013 80544 Destruction Of Benign Lesions Any Method 1-14 lesions Completed 01/19/2012 12055 Destruction Of Benign Lesions Any Method 1-14 lesions Completed Encounters Type Date Location Provider Dx Diagnosis Office Visit 05/02/2018 [facility] Internal Teresa Seymour, K64.8 Other hemorrhoids 3:40p Medicine N.P. 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 infections of the skin and subcutaneous tissue Z72.0 Tobacco use Office Visit 09/17/2015 3:00p [facility] Wilmer Gimenez NP Z00.00 Encntr for Medicine general adult medical exam w/o abnormal findings N63 Unspecified lump in breast Z72.0 Tobacco use Z13.220 Encounter for screening for lipoid disorders Z13.1 Encounter for screening for diabetes mellitus Office Visit 07/07/2015 2:00p [facility] Internal Kishor Astudillo, R11.10 Vomiting, Medicine [employer] STE[employer] unspecified Office Visit 04/19/2013 9:00a [facility] Internal Barbara 078.19 Viral Warts Spec Medicine Carlos Enrique, Other N.P. 466.0 Bronchitis Acute Office Visit 01/08/2013 1:40p [facility] Internal Teresa Lion, 719.41 Pain Joint Medicine N.P. Shoulder Region 078.19 Viral Warts Spec Other Office Visit 05/18/2012 11:40a [facility] Internal Hailey Hayden, 466.0 Bronchitis Acute Medicine M.D. 110.4 Dermatophytosis Foot Office Visit 01/19/2012 [facility] Internal Nioclasa 611.79 Breast Signs & 3:00p Medicine Debby, N.P. Symptoms Other 078.10 Viral Warts Unspec Office Visit 12/01/2011 10:30a [facility] Internal Nicolasa 276.51 Dehydration Medicine Debby N.P. 787.01 Nausea W/ Vomiting Office Visit 10/29/2011 1:20p [facility] Internal Hailey Hayden, 228.09 Hemangioma Other Medicine M.D. Sites V17.49 Family HX Of Other Cardiovascular Diseases V18.19 Family HX Of Other Endocrine And Metabolic Diseases v06.1 Xpgsbjbgfs-Pfcwsir-Bzqnmiyo Combined (DTaP) Plan of Treatment 10/10/2018 - Teresa Seymour, N.P.R11.2 Nausea with vomiting, unspecifiedNew Medication:Ranitidine HCL 150 mg - take one tablet by mouth twice a dayComments: I have ordered blood work to check for anemia, , and electrolytes. The office will contact you with your results.I have prescribed Ranitidine 150 mg for you, take 1 tablet twice daily.I encourage you to avoid dairy, spicy, and greasy foods for now.I am referring you to a GI specialist since you have a history of H-Pylori.Referral:Wesly Andre MD, Gastroenterology
--- OUTSIDE RECORDS SUMMARY | 2018-11-07 11:20 | XMS REPORT | Continuity of Care Document ---
:1985 External Reference #:[id number] Author Name Nickie Jones Care Team Providers Name Role Phone Airam Leos MD Primary Care Physician Unavailable Payers Date Identification Numbers Payment Provider Subscriber Effective: 2015 Policy Number: [id number] Shasta Aleisha Roblero Group Name: [id number] [address] PayID: [id number] [place] [address] Expires: 2015 Policy Number: [id number] [employer] Aleisha Roblero PayID: [id number] [address] [address] [place] [address] Advance Directives Type Date Description Status Comment [...] Onset: 01/19/2012 Breast signs and symptoms Nicolasa Guardado, Active N.P. Onset: 01/19/2012 Verruca vulgaris Nicoalsa Guardado, Active N.P. Family History Date Family [...] 05/02/ Hx Cream 2.5% 28.35u apply K64.8 2017 - nits twice Varn, 05/16/ daily N.P. 2017 Amoxicillin/Cl 08/16/ Hx Tablets 875-125mg 20tabs take one J01.90 Wilmer avulanate 2017 - tablet VENTURA Gimenez Potassium 08/26/ q12 hours 2017 for 10 days Fluticasone 08/16/ Hx Suspension 50mcg/Act 16unit 2 sprays J01.90 Wilmer Propionate 2017 - s each VENTURA Gimenez 08/30/ nostril 2016 qd. x 2 weeks Augmentin // Hx Tablets 875-125mg 20tabs 1 tablet J01.90 Wilmer 2016 - by mouth VENTURA Gimenez 08/16/ q12 hours 2017 for 10 days Fluticasone // Hx Suspension 50mcg/Act 16unit 2 sprays J01.90 Wilmer Propionate 2016 - s each VENTURA Gimenez 05/09/ nostril 2015 qd. Bupropion HCL 12/09/ Hx Tablets ER 150mg 60tabs one Z72.0 Wilmer ER (Smoking 2016 - 12HR tablet VENTURA Gimenez Det) 05/04/ once 2016 daily x 3 days and then one tablet twice daily Azithromycin 12/09/ Hx Tablets 250mg 6tabs 2 tabs by L08.89 Wilmer 2016 - mouth VENTURA Gimenez 05/04/ every day [...] 100mg 30caps 1 tab po 466.0 Barbara Shobha 2013 - po tid Carlos Enrique, 07/07/ prn N.P. 2014 Amoxicillin/Cl 05/18/ Hx Tablets 875-125mg 20tabs 1 tab po 466.0 Hailey avulanate 2012 - 2x per Catracho, Potassium 01/08/ day M.D. 2012 Lamisil AT 05/18/ Hx Cream 1% 45gm apply to 110.4 [facility] Athletes Foot 2011 - foot bid Catracho, 07/07/ until M.DTrace 2014 resolved Ortho Evra / Hx Patches 150-20mcg/ 9units apply Unknown 0000 - Weekly 24HR patch 05/18/ 2011 for 3 weeks, then remove for 1 week for cycle. Depo Shot / Hx Unknown 0000 - 2017 Immunizations CPT Code Status Date Vaccine Lot # [id number] Given 10/29/2011 Tdap - Tetanus/Diptheria/Acellular Pertussis [id number] Vital Signs Date Vital Result Comment 10/12/2018 [...] Result H/L Range Note Laboratory test 10/12/2018 [facility] H Pylori C <pending> finding [address] [address] Test [phone] CBC Auto Diff 10/11/2018 [facility] White Blood 7.7 10^3/uL N 3.5-10.[address] [place] [address] [phone] Red Blood Count 4.05 10^6/uL N 3.70-4.87 [...] Blood Cells % 0.1 Laboratory test 10/11/2018 [facility] HCG < 0.60 [address] mIU/[place] [address] [phone] Basic Metabolic 10/11/2018 [facility] Sodium 139 mmol/L N 135- [address] [place] [address] [phone] Potassium 3.7 mmol/L N 3.5-5.0 Chloride 105 mmol/L N 101-111 Co2 Carbon Dioxide 25 mmol/L N 22-32 Anion Gap 9 mmol/L N 2-11 Glucose 89 mg/dL N 70-100 Blood Urea Nitrogen 15 mg/dL N 6-24 Creatinine 0.67 mg/dL N 0.51-0.95 BUN/Creatinine Ratio 22.4 High 8-20 Calcium 10.0 mg/dL N 8.6-10.3 Egfr Non- 101.4 >60 Egfr 122.7 >60 2 Laboratory test 09/18/2015 [facility] LDL Cholesterol 35 mg/dL N [address] [place] [address] [phone] Comp Metabolic 09/18/2015 [facility] Sodium 139 mmol/L N 133- [address] [place] [address] [phone] Potassium 4.1 mmol/L N 3.5-5.0 Chloride 107 [...] 116.7 N >60 4 Lipid Profile 09/18/2015 [facility] Triglycerides 21 mg/dL N 5 (Trig/Chol/HDL) [address] [place] [address] [phone] Cholesterol 116 mg/dL N 6 HDL Cholesterol 72.1 mg/dL N 7 LDL Cholesterol 40 mg/dL N 8 Hepatitis 12/01/2011 [facility] Hepatitis C Nonreactive Nonreactive Acute Panel [address] [place] [address] [phone] Hepatitis A AB Igm Nonreactive Nonreactive Hepatitis B Core Igm Nonreactive Nonreactive Hepatitis B Surface Ag Nonreactive Nonreactive CBC With Manual 12/01/2011 [facility] White Blood 8.9 CUMM 4.8-10.[address] [place] [address] [phone] Red Cell Count 3.97 CUMM Low 4.2-5.4 [...] % 0-6 Anisocytosis SLIGHT Laboratory test 12/01/2011 [facility] TSH 0.42 MIU/ML 0.34- 5.60 finding [address] [place] [address] [phone] Comp Metabolic 12/01/2011 [facility] Sodium 140 mmol/L 135- 145 Panel [address] [place] [address] [phone] Potassium 4.2 mmol/L 3.5-5.0 Chloride 105 mmol/L [...] > 60 11 CBC Auto Diff 11/01/2011 [facility] White Blood 4.7 CUMM Low 4.8-10.[address] [place] [address] [phone] Red Cell Count 3.95 CUMM Low 4.2-5.4 [...] Basophils 0 0-0.2 Comp Metabolic Panel 11/01/2011 [facility] Sodium 138 mmol/L 135-[address] [place] [address] [phone] Potassium 4.0 mmol/L 3.5-5.0 Chloride 106 mmol/L [...] 111.5 > 60 14 Lipid Profile 11/01/2011 [facility] Triglyceride 43 mg/dL 40- 200 (Trig/Chol/HDL) [address] [place] [address] [phone] Cholesterol 174 mg/dL Less Than 200 15 High Density Lipoprotein 75 mg/dL High 40-60 16 Cholesterol/HDL Ratio 2.32 AVERAGE 1-4.44 Low Density Lipoprotein 90 mg/dL Less Than 100 17 Vad 11/01/2011 [facility] Vad Final Nonreactive Nonreactive 18 [address] [place] [address] [phone] 1 <5.0 Negative 5.0 - 25.0 Indeterminate [...] has been shown to interfere with the Jendrassik-[place] method for measuring total bilirubin. Samples from [...] 99.96%. Procedures Date Code Description Status 02/07/2013 96403 Destruction Of Benign Lesions Any Method 1-14 lesions Completed 01/08/2013 89048 Destruction Of Benign Lesions Any Method 1-14 lesions Completed 01/19/2012 61802 Destruction Of Benign Lesions Any Method 1-14 lesions Completed Encounters Type Date Location Provider Dx Diagnosis Office Visit 05/02/2018 [facility] Internal Teresa Seymour, K64.8 Other hemorrhoids 3:40p Medicine N.P. 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 Z72.0 Tobacco use Office Visit 09/17/2015 3:00p [facility] Internal Wilmer Gimenez NP Z00.00 Encntr for Medicine general adult medical exam w/o abnormal findings N63 Unspecified lump in breast Z72.0 Tobacco use Z13.220 Encounter for screening for lipoid disorders Z13.1 Encounter for screening for diabetes mellitus Office Visit 07/07/2015 2:00p [facility] Internal Kishor Astudillo, R11.10 Vomiting, 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 466.0 Bronchitis Acute Office Visit 01/08/2013 1:40p [facility] Internal Teresa Seymour, 719.41 Pain Joint Medicine N.P. Shoulder Region 078.19 Viral Warts Spec Other Office Visit 05/18/2012 11:40a [facility] Internal Hailey Hayden, 466.0 Bronchitis Acute Medicine M.DTrace 110.4 Dermatophytosis Foot Office Visit 01/19/2012 [facility] Internal Nicolasa 611.79 Breast Signs & 3:00p Medicine Debby, N.P. Symptoms Other 078.10 Viral Warts Unspec Office Visit 12/01/2011 10:30a [facility] Internal Nicolasa 276.51 Dehydration Medicine Debby, N.P. 787.01 Nausea W/ Vomiting Office Visit 10/29/2011 1:20p [facility] Internal Hailey Hayden, 228.09 Hemangioma Other Medicine M.D. Sites V17.49 Family HX Of Other Cardiovascular Diseases V18.19 Family HX Of Other Endocrine And Metabolic Diseases v06.1 Dvfqxuyutl-Ihlwpek-Kbtiromz Combined (DTaP) Plan of Treatment Future Appointment(s):10/13/2018 8:40 am - Nurse Visit Gastroenterology at [facility] Gastroenterology
[2018-11-07 11:28] VITALS: BP 100/63
--- NOTE | 2018-11-07 11:51 | UC ---
Rectal Pain HPI - HPI Summary HPI Summary: 33-year-old female presents with 2 week history of a painful hemorrhoid. States she had a similar episode approximately one year ago and was prescribed a topical steroid hemorrhoid cream which did help with her symptoms. States she has used the cream this time without any improvement. She does note at the hemorrhoid appears to be smaller than previous however is more painful. States that she was straining while having a bowel movement at the onset of symptoms but denies any straining or constipation symptoms. Denies fever, chills, abdominal pain, nausea, vomiting, or rectal bleeding. - History Of Current Complaint Chief Complaint: UCGU Stated Complaint: PERSONAL Time Seen by Provider: 11/07/18 11:44 Hx Obtained From: Patient Hx Last Menstrual Period: tubal ligation Pain Intensity: 6 - Allergies/Home Medications Allergies/Adverse Reactions: Allergies Allergy/AdvReac Type Severity Reaction Status Date / Time chlorpheniramine Allergy Intermediate Hives Verified 11/07/18 11:28 pseudoephedrine Allergy Intermediate Hives Verified 11/07/18 11:28 Home Medications: Home Medications Omeprazole 40 mg PO 11/07/18 [History] raNITIdine HCl [Ranitidine HCl] 150 mg PO 11/07/18 [History] PMH/Surg Hx/FS Hx/Imm Hx GI/ History: Gastroesophageal Reflux - Surgical History Surgical History: Yes Surgery Procedure, Year, and Place: BUNIONECTOMIES BILAT FEET [facility] 1997,1998. COLPOSCOPY AND LEEP 2006 [facility] - Family History Known Family History: Positive: Non-Contributory - Social History Occupation: Unemployed Lives: With Family Alcohol Use: Rare Alcohol Amount: WINE Substance Use Type: Marijuana Substance Use Comment - Amount & Last Used: few times a month Smoking Status (MU): Former Smoker Type: Cigars Amount Used/How Often: 5 cigarettes a day, smoked for approx 10 years Review of Systems All Other Systems Reviewed And Are Negative: Yes Constitutional: Negative: Fever, Chills Skin: Negative: Rash Respiratory: Positive: Negative Cardiovascular: Positive: Negative Gastrointestinal: Positive: Other - See HPI. Negative: Abdominal Pain, Vomiting , Diarrhea, Nausea Genitourinary: Positive: Negative Musculoskeletal: Positive: Negative Neurological: Positive: Negative Is Patient Immunocompromised?: No Physical Exam - Summary Physical Exam Summary: GENERAL APPEARANCE: Well developed, well nourished, alert and cooperative, and appears to be in no acute distress. CARDIAC: Normal S1 and S2. No S3, S4 or murmurs. Rhythm is regular. There is no peripheral edema, cyanosis or pallor. Extremities are warm and well perfused. Capillary refill is less than 2 seconds. Peripheral pulses intact. LUNGS: Clear to auscultation without rales, rhonchi, wheezing or diminished breath sounds. ABDOMEN: Positive bowel sounds. Soft, nondistended, nontender. No guarding or rebound. No masses or hepatosplenomegally. Patient deferred rectal exam. MUSKULOSKELETAL: ROM intact to all extremities. No joint erythema or tenderness. Normal muscular development. Normal gait. SKIN: Skin normal color, texture and turgor with no lesions or eruptions. Triage Information Reviewed: Yes Vital Signs: Initial Vital Signs Temp 97.8 F 11/07/18 11:20 Pulse 80 11/07/18 11:20 Resp 18 11/07/18 11:20 BP 100/63 11/07/18 11:20 Pulse Ox 100 11/07/18 11:20 Vital Signs Reviewed: Yes Rectal Pain Course/Dx - Course Course Of Treatment: 33-year-old female presents with 2 week history of a painful hemorrhoid. States she had a similar episode approximately one year ago and was prescribed a topical steroid hemorrhoid cream which did help with her symptoms. States she has used the cream this time without any improvement. She does note at the hemorrhoid appears to be smaller than previous however is more painful. States that she was straining while having a bowel movement at the onset of symptoms but denies any straining or constipation symptoms. Denies fever, chills, abdominal pain, nausea, vomiting, or rectal bleeding. Afebrile. Vital signs stable. Exam was overall unremarkable. Patient did defer rectal exam at this time. Recommend conservative treatment with a topical hydrocortisonelidocaine hemorrhoid cream, sitz bath, a stool softener, and high-fiber diet or fiber supplement. She is to follow-up with her primary care provider in 3-5 days if symptoms do not improve. I have also given her referral to general surgery should the symptoms persist despite conservative treatment. Anticipatory guidance and warning symptoms were reviewed with the patient. Verbalizes understanding and agrees with plan of care. - Differential Dx/Diagnosis Differential Diagnosis/HQI/PQRI: Hemorrhoid(s), Rectal Fissure, Rectal Polyps Provider Diagnosis: Acute hemorrhoid Discharge - Sign-Out/Discharge Documenting (check all that apply): Patient Departure All imaging exams completed and their final reports reviewed: No Studies - Discharge Plan Condition: Stable Disposition: HOME Patient Education Materials: Hemorrhoids (ED), High Fiber Diet (ED) Referrals: Hailey Hayden MD [Primary Care Provider] - 3 Days Xiomara Elliott MD [Medical Doctor] - Additional Instructions: Your history and exam are consistent with a hemorrhoid. Try using an topical hemorrhoid cream with hydrocortisone and lidocaine such as Preparation H with lidocaine according to directions to help with the discomfort. Sitting in a warm bath for 15-20 minutes 2-3 times a day can also help to sooth the discomfort. Use an over the counter stool softener such docusate sodium (Colace) according to directions so you do not strain while having a bowel movement. Eat a high fiber diet or use a fiber supplement such as Metamucil or Citrucel. Drink plenty of fluids. Follow up with your primary care provider in 3-5 days if symptoms persist. I have also given you a referral to Dr. Elliott, general surgeon, to follow up with if symptoms persist despite conservative treatment. Seek immediate medical attention in the emergency room if you develop fever greater than 100.5 F, have severe abdominal pain, large abount of blood in your stool, persistent rectal bleeding, or any worsening of symptoms. - Billing Disposition and Condition Condition: STABLE Disposition: Home
== END 2018-11-07 12:25 | disposition home or self-care (01) ==
LOC: UCEAST 11:13
DX: K64.9 Unspecified hemorrhoids (principal); K21.9 Gastro-esophageal reflux disease without esophagitis; Z88.8 Allergy status to other drugs, medicaments and biological substances; Z87.891 Personal history of nicotine dependence
CPT/HCPCS: 99211; G0463